=== PATIENT | male | born 1940 ===

== ENCOUNTER 2017-10-13 10:21 | Emergency (ER) | payer MEDICARE, BC ==
[~2017-10-13] VITALS: Ht 170.2 cm; Wt 93.0 kg
[~2017-10-13 10:21] MED LIST: ALLO100; ATEN100; ATEN25; CALGLU500; CEPH500 PO; CLOP75 PO; CYAN500; CYCL100; CYCL25; Cyclobenzaprine5 MG PO; DILT180ER; ERGO400; FURO40; Gengraf25 MG PO; INSLIS75I SC; INSULANPEN SC; LEVSOD50 PO; NYSTRITC TOP; OMEP20ER; PANT40; Percocet 5-3251 EACH PO; TRAM50 PO; [UNRECOGNIZED DRUG - REMARK]
[2018-06-06] MEDS ORDERED: Humalog100 UNIT/1 (12:22)
== END 2017-10-13 17:59 | disposition home or self-care (01) ==
LOC: ER 10:21
DX: R04.0 Epistaxis (principal); R11.0 Nausea; E11.9 Type 2 diabetes mellitus without complications; I10 Essential (primary) hypertension; E03.9 Hypothyroidism, unspecified; Z79.84 Long term (current) use of oral hypoglycemic drugs; Z79.899 Other long term (current) drug therapy; Z79.4 Long term (current) use of insulin; Z79.891 Long term (current) use of opiate analgesic
CPT/HCPCS: 82947; 99283

== ENCOUNTER 2017-11-11 16:05 | Emergency (ER) | payer MEDICARE, BC ==
[~2017-11-11] VITALS: Ht 170.2 cm; Wt 93.0 kg
[2018-06-06] MEDS ORDERED: Humalog100 UNIT/1 (12:22)
== END 2017-11-11 20:32 | disposition home or self-care (01) ==
LOC: ER 16:05
DX: R04.0 Epistaxis (principal); E11.9 Type 2 diabetes mellitus without complications; I10 Essential (primary) hypertension; E03.9 Hypothyroidism, unspecified; Z79.02 Long term (current) use of antithrombotics/antiplatelets; Z79.4 Long term (current) use of insulin; Z79.899 Other long term (current) drug therapy; Z87.891 Personal history of nicotine dependence
CPT/HCPCS: 30901; 99283

== ENCOUNTER → 2018-05-24 | Outpatient (CLI) | payer MEDICARE, BC ==
[~2018-05-24] MED LIST changes: +Humalog100 UNIT/1
== END ==
LOC: PLD 09:13 → LAB SHORT 09:13
DX: D48.5 Neoplasm of uncertain behavior of skin (principal)
CPT/HCPCS: 88305

== ENCOUNTER → 2018-07-17 | Outpatient (CLI) | payer MEDICARE, BC ==
[2018-07-17 09:30] LABS: Source, Urine Clean Catch
[2018-07-17 09:49] LABS: BASOPHILS ABSOLUTE AUTO 0.02 K/mm3 (0.00-0.23); BASOPHILS PERCENT AUTO 0 % (0-2); EOSINOPHILS ABSOLUTE AUTO 0.09 K/mm3 (0.00-0.68); EOSINOPHILS PERCENT AUTO 2 % (0-6); Hematocrit 31.9 % (37.0-53.0); Hemoglobin 10.2 g/dL (13.5-17.5); IMMATURE GRAN ABSOLUTE AUTO 0.01 K/mm3 (0.00-0.10); IMMATURE GRAN PERCENT AUTO 0 % (0-1); LYMPHOCYTES ABSOLUTE AUTO 0.93 K/mm3 (0.84-5.20); LYMPHOCYTES PERCENT AUTO 21 % (21-46); MONOCYTES PERCENT AUTO 11 % (4-13); Mean Corpuscular HGB 31.8 pg (26.0-34.0); Mean Corpuscular Volume 99 fL (80-100); Mean Platelet Volume 11.4 fL (9.1-12.4); NEUTROPHILS ABSOLUTE AUTO 2.92 K/mm3 (1.96-9.15); NEUTROPHILS PERCENT AUTO 65 % (41-73); Platelet Count 142 K/mm3 (150-400); RDW Coefficient Variation 14.4 % (11.7-14.2); RDW Standard Deviation 53.1 fL (35.1-46.3); Red Blood Cell Count 3.21 M/mm3 (4.30-5.90); White Blood Cell Count 4.47 K/mm3 (4.00-11.30)
[2018-07-17 09:55] LABS: Bilirubin, Urine Neg (Neg); Blood, Urine Neg (Neg); Glucose Qualitative, Urine Neg (Neg); Ketones, Urine Neg (Neg); Leukocyte Esterase, Urine Neg (Neg); Nitrite, Urine Neg (Neg); Protein, Urine 1+ (Neg); Specific Gravity, Urine 1.015 (1.003-1.022); Urobilinogen, Urine NORM (Normal)
[2018-07-17 10:09] LABS: Appearance, Urine Clear (Clear); Color, Urine Yellow (P-Yellow)
[2018-07-17 10:16] LABS: Albumin, Blood 3.2 g/dL (3.4-5.0); Albumin/Globulin Ratio 0.7 (0.8-1.8); Bilirubin, Direct 0.4 mg/dL (0.0-0.3); Bilirubin, Indirect 0.3 mg/dL (0.1-0.7); Bilirubin, Total 0.7 mg/dL (0.1-1.0); Calcium, Blood 9.2 mg/dL (8.5-10.1); Creatinine, Blood 1.97 mg/dL (0.60-1.20); Globulin, Blood 4.6 g/dL (2.2-4.0); Magnesium, Blood 2.2 mg/dL (1.6-2.4); Phosphorus, Blood 4.4 mg/dL (2.5-4.9); Potassium, Blood 4.8 mmol/L (3.5-5.5); Total Protein, Blood 7.8 g/dL (6.4-8.2); Uric Acid, Blood 6.8 mg/dL (3.5-7.2)
[2018-07-17 10:27] LABS: Protein, Urine Random 24.1 mg/dL (0.0-11.9)
[2018-07-17 10:40] LABS: Creatinine, Urine Random 40.7 mg/dL (27.00-270.00)
== END | disposition home or self-care (01) ==
LOC: LAB SHORT 09:19 → LAB 09:19
PROVIDERS: Internal Medicine
DX: N18.3 Chronic kidney disease, stage 3 (moderate) (principal); D50.9 Iron deficiency anemia, unspecified; Z94.0 Kidney transplant status
CPT/HCPCS: 36415; 80048; 80076; 80158; 82570; 83735; 84100; 84156; 84550; 85025

== ENCOUNTER 2019-02-09 09:07 | Day surgery (SDC) | payer MEDICARE, BC ==
[~2019-02-09] VITALS: Ht 170.2 cm; Wt 96.3 kg
[~2019-02-09 09:07] MED LIST changes: +ALLO100 PO; +Calcitriol0.5 MCG PO; +FURO80 PO; +HYDRA25 PO; +Humalog100 UNIT/1 SC; +ICAPS AREDS SO1 EACH PO; +Omeprazole20 M1 PO; +PANT40 PO
== END 2019-02-09 12:09 | disposition home or self-care (01) ==
LOC: ORSCSDS 09:07
PROVIDERS: Podiatrist Foot & Ankle Surgery
PROC: 0QBL0ZZ Excision of Right Tarsal, Open Approach (ICD-10-PCS; principal; 2019-02-09 10:30)
DX: M85.69 Other cyst of bone, multiple sites (principal); E11.22 Type 2 diabetes mellitus with diabetic chronic kidney disease; I12.9 Hypertensive chronic kidney disease with stage 1 through stage 4 chronic kidney disease, or unspecified chronic kidney disease; N18.3 Chronic kidney disease, stage 3 (moderate); Z79.4 Long term (current) use of insulin; E11.40 Type 2 diabetes mellitus with diabetic neuropathy, unspecified; G47.33 Obstructive sleep apnea (adult) (pediatric); Z87.891 Personal history of nicotine dependence; E03.9 Hypothyroidism, unspecified; Z79.899 Other long term (current) drug therapy
CPT/HCPCS: 82947; C1713; J0690; J1100; J2405; J2704; J3010; J7120

== ENCOUNTER → 2019-03-20 | Outpatient (CLI) | payer MEDICARE, BC | LOC: PLD 15:05 → LAB SHORT 15:05 | DX: D48.5 Neoplasm of uncertain behavior of skin (principal) | CPT/HCPCS: 88305 ==